=== PATIENT | male | born 1975 | race Two or more races ===

== ENCOUNTER 2016-11-22 13:51 | Emergency (ER) | payer BC ==
[~2016-11-22] VITALS: Ht 185.4 cm; Wt 88.5 kg
[2016-11-22] MEDS ORDERED: CEPHALEXIN MONOHYDRATE 500 MG CAPSULE PO ONE ×2 (14:25→14:30)
[2016-11-22] MEDS ORDERED: CLOBETASOL 0.05% OINT 30 GM TUBE TP SCH (14:30)
[2016-11-22 14:52] VITALS: BP 142/87
== END 2016-11-22 16:09 | disposition home or self-care (01) ==
LOC: ER 13:54
DX: L23.7 Allergic contact dermatitis due to plants, except food (principal); E78.00 Pure hypercholesterolemia, unspecified
CPT/HCPCS: A4606; Z7610